=== PATIENT | male | born 1960 | race Caucasian/White ===

== ENCOUNTER 2018-11-16 07:45 | Outpatient (RCR) | payer BC | END 2018-12-12 | disposition home or self-care (01) | LOC: WSPT | DX: M67.912 Unspecified disorder of synovium and tendon, left shoulder (principal); Z79.899 Other long term (current) drug therapy ==

== ENCOUNTER 2019-02-01 07:45 | Outpatient (RCR) | payer BC | END 2019-02-01 18:43 | disposition home or self-care (01) | LOC: WSPT 07:45 | DX: M67.912 Unspecified disorder of synovium and tendon, left shoulder (principal) ==

== ENCOUNTER → 2019-07-23 | Outpatient (CLI) | payer BC | LOC: COL.RAD 13:45 | DX: M79.672 Pain in left foot (principal) | CPT/HCPCS: A9585 ==

== ENCOUNTER → 2021-07-15 | Outpatient (CLI) | payer BC | LOC: COL.RAD 09:49 | DX: E21.3 Hyperparathyroidism, unspecified (principal) | CPT/HCPCS: A9500 ==

== ENCOUNTER → 2022-02-10 | Outpatient (CLI) | payer BC | LOC: COL.RAD 09:13 | DX: D35.1 Benign neoplasm of parathyroid gland (principal); E21.3 Hyperparathyroidism, unspecified | CPT/HCPCS: A9575 ==